=== PATIENT | female | born 1985 | race Caucasian/White ===

== ENCOUNTER 2021-01-10 13:17 | Emergency (ER) | payer BC ==
--- NOTE | 2021-01-10 13:26 | EDM.PDOC ---
ED HPI GENERAL MEDICAL PROBLEM - General Chief Complaint: General Stated Complaint: left arm pain Time Seen by Provider: 01/10/21 13:26 Source of Information: Reports: Patient - History of Present Illness INITIAL COMMENTS - FREE TEXT/NARRATIVE: Karen, 35-year-old female, presents with left forearm elbow and wrist pain with some numbness to the fingers. States she was school shopping for her son on Monday, carrying bags over her forearm and hand when she noticed a sudden sensation in the elbow that led to increasing numbness and limited extension at the elbow as well is unable to supinate her forearm palm. States it has become gradually more achy and now is tingling in the wrist and fingers. She denies any trauma, falls or incidents that day. Gives remote history of striking her "Funny bone" over a week ago, with no specific concerns. History of the humerus as well as forearm fractures as a child. Denies any other complications but stating at times pain radiates up towards to the shoulder but does not have any limitations of the shoulder girdle. Onset: Gradual Onset Date: 01/08/21 Duration: Day(s): Location: Reports: Upper Extremity, Left Quality: Reports: Ache, Pressure, Throbbing Severity: Severe Improves with: Reports: None Worsens with: Reports: Movement Context: Reports: Activity, Lifting Associated Symptoms: Reports: No Other Symptoms left arm Pain Score (Numeric/FACES): 8 - Related Data Allergies Allergy/AdvReac Type Severity Reaction Status Date / Time No Known Allergies Allergy Verified 01/10/21 13:22 Home Meds: Home Meds . 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: Endometrial Ablation, Endometriosis, : 1 Para: 1 Musculoskeletal History: Reports: Other (See Below) (fracture humerus and forearm, child) Neurological History: Reports: None Psychiatric History: Reports: None Endocrine/Metabolic History: Reports: None Oncologic (Cancer) History: Reports: None Dermatologic History: Reports: None - Past Surgical History HEENT Surgical History: Reports: Other (See Below) (wisdom teeth) Female Surgical History: Reports: Hysterectomy Social & Family History - Family History Family Medical History: No Pertinent Family History - Tobacco Use Tobacco Use Status *Q: Current Some Day Tobacco User Tobacco Use Within Last Twelve Months: Cigarettes Used Tobacco, but Quit: No Smoking Cessation Information Provided To Patient: No - Alcohol Use Alcohol Use History: Yes Alcohol Use in Last Twelve Months: Yes Alcohol Use Frequency: Socially ED ROS GENERAL - Review of Systems Review Of Systems: Comprehensive ROS is negative, except as noted in HPI. ED EXAM, GENERAL - Physical Exam Exam: See Below Free Text/Narrative:: Alert, oriented, in mild painful distress. HEENT is negative to discharge nor deformity. Neck is soft supple no lymphadenopathy. There is no tenderness to the shoulder girdle with mild tenderness at the distal humerus near the olecranon but not focal in nature. There is tenderness to the proximal forearm tenderness at at, with achiness tenderness distally in the forearm. Radial pulses present Motion of the wrist hand digits are intact but her forearm is in a neutral positioning, unable to supinate, with ability to further pronate. She can only extend her arm to roughly 110-120 degrees, stating pain increases as well as some numbness sensation to the wrist and hand increasing. No deformity with minimal swelling is noted in examination with tenderness in the antecubital fossa region and medially from there. No ecchymosis noted. ED GENERAL MEDICAL PROCEDURES - Splinting Left Upper Extremity Splint Site: distal arm/forearm Pre-procedure NV status: Normal Post-procedure NV status: Normal Splint Type: Custom Splint Material: Fiberglass Splint Design: Gutter Applied & Form Fitted By: Provider Provider Post-Splint Application NV Check: NV Status Normal, Good Position Complications: No Progress/Comments: Secondary of extreme discomfort, inability to extend and supinate IV was established with IV medications given an attempt to relax. 2 mg of Versed IV and 1 mg hydromorphone with good control of pain and allowing her to relax sufficiently. O2 sats maintained 97% with 2 L of nasal cannula and all vitals were monitored and remained stable. After allowing relaxation I attempted to supinate the forearm, and obtain extension. I was unable to bring the forearm into supination as it felt as if it was a catching/locking sensation at the radial head and would still not extend beyond the 110 degrees without increased pain. At this time any further manipulation was deferred and contact was made with [facility] in [place] speaking first with ELINA Esposito for Dr. Whyte in orthopedics and then Dr. Yao in the emergency department. Splinting was obtained and given information to call for orthopedic follow-up tomorrow. Was fully alert and oriented with minimal discomfort at the time splint was completed. She was discharged with individual coming to transport her she was advised she would not be able to drive for the remainder of the day. Course - Vital Signs Last Recorded V/S: Last Vital Signs Temp 97.2 F 01/10/21 13:59 Pulse 60 01/10/21 14:35 Resp 17 01/10/21 14:35 BP 142/80 H 01/10/21 14:35 Pulse Ox 98 01/10/21 14:35 - Orders/Labs/Meds Orders: Active Orders 24 hr Category Date Time Status Peripheral IV Care [RC] . DIRECTED Care 01/10/21 13:48 Ordered Sodium Chloride 0.9% [Saline Flush] Med 01/10/21 13:48 Ordered 10 ml FLUSH Q8HR PRN Peripheral IV Insertion Adult [OM.PC] Stat Oth 01/10/21 13:48 Ordered Medication Orders Sodium Chloride (Sodium Chloride 0.9% 10 Ml Syringe) 10 ml FLUSH Q8HR PRN PRN Reason: keep vein open Last Admin: 01/10/21 14:09 Dose: 10 ml Documented by: Admin: 01/10/21 14:03 Dose: 10 ml Documented by: BOWEN Meds: Medications Generic Name Dose Route Start Last Admin Trade Name Freq PRN Reason Stop Dose Admin Sodium Chloride 10 ml 01/10/21 13:48 01/10/21 14:09 Sodium Chloride 0.9% 10 Ml Syringe FLUSH 10 ml Q8HR PRN Administration keep vein open Discontinued Medications Generic Name Dose Route Start Last Admin Trade Name Freq PRN Reason Stop Dose Admin Hydromorphone HCl 1 mg 01/10/21 13:48 01/10/21 14:02 Hydromorphone 1 Mg/Ml Syringe IVPUSH 01/10/21 13:49 1 mg ONETIME ONE Administration Ketorolac Tromethamine 60 mg 01/10/21 13:33 01/10/21 13:38 Ketorolac 60 Mg/2 Ml Sdv IM 01/10/21 13:34 60 mg ONETIME ONE Administration Midazolam HCl 2 mg 01/10/21 13:48 01/10/21 14:02 Midazolam 1 Mg/Ml 2 Ml Sdv IVPUSH 01/10/21 13:49 2 mg ONETIME ONE Administration Departure - Departure Time of Disposition: 15:15 Disposition: Home, Self-Care 01 Condition: Good Clinical Impression: Fracture of lateral epicondyle of left humerus, Elbow pain, left - Discharge Information *PRESCRIPTION DRUG MONITORING PROGRAM REVIEWED*: Not Applicable *COPY OF PRESCRIPTION DRUG MONITORING REPORT IN PATIENT JESIKA: Not Applicable Instructions: Musculoskeletal Pain, Humerus Fracture With Rehab-SportsMed Referrals: Reymundo Whyte MD [Ordering Only Provider] - Forms: ED Department Discharge Additional Instructions: You have been placed in a splint. Keep in splint and sling until you are re-seen tomorrow or Monday is able to schedule with [facility] office. You may call [phone] to the switchboard to be connected with the orthopedic department. Avoid any use of the left upper extremity. You may take Tylenol and/or ibuprofen for the discomfort. Ice may help comfort as well as reduce any further swelling that is present although it is minimal at this time. You may use heat if that would help with your discomfort. X-rays are at [facility] at this time and have been looked at preliminary in discussion with providers today. Call at 8 AM tomorrow morning to establish follow-up appointment. [phone] Call or return to the hospital if concerns develop prior to your appointment. Sepsis Event Note (ED) - Focused Exam Vital Signs: Vital Signs Temp Pulse Resp BP Pulse Ox 01/10/21 14:35 60 17 142/80 H 98 01/10/21 14:30 70 20 144/87 H 96 01/10/21 14:25 66 19 141/95 H 97 01/10/21 14:20 75 21 H 133/85 98 01/10/21 14:15 69 20 152/89 H 95 01/10/21 14:11 79 16 148/94 H 97 01/10/21 13:59 97.2 F 80 18 107/71 97 01/10/21 13:23 97.4 F 104 H 16 147/94 H 96 - Problem List & Annotations (1) Elbow pain, left SNOMED Code(s): 51537229 Code(s): M25.522 - PAIN IN LEFT ELBOW Status: Acute Priority: High (2) Fracture of lateral epicondyle of left humerus SNOMED Code(s): 761875961 Code(s): S42.432A - DISP FX (AVULSION) OF LATERAL EPICONDYLE OF L HUMERUS, INIT Status: Acute Priority: High Qualifiers: Encounter type: initial encounter Fracture type: closed Fracture alignment: nondisplaced - Problem List Review Problem List Initiated/Reviewed/Updated: Yes - My Orders Last 24 Hours: My Active Orders 01/10/21 13:48 Peripheral IV Care [RC] . DIRECTED Sodium Chloride 0.9% [Saline Flush] 10 ml FLUSH Q8HR PRN Peripheral IV Insertion Adult [OM.PC] Stat - Assessment/Plan Last 24 Hours: My Active Orders 01/10/21 13:48 Peripheral IV Care [RC] . DIRECTED Sodium Chloride 0.9% [Saline Flush] 10 ml FLUSH Q8HR PRN Peripheral IV Insertion Adult [OM.PC] Stat Plan: You have been placed in a splint. Keep in splint and sling until you are re-seen tomorrow or Monday is able to schedule with [facility] office. You may call [phone] to the switchboard to be connected with the orthopedic department. Avoid any use of the left upper extremity. You may take Tylenol and/or ibuprofen for the discomfort. Ice may help comfort as well as reduce any further swelling that is present although it is minimal at this time. You may use heat if that would help with your discomfort. X-rays are at [facility] at this time and have been looked at preliminary in discussion with providers today. Call at 8 AM tomorrow morning to establish follow-up appointment. [phone] Call or return to the hospital if concerns develop prior to your appointment.
[2021-01-10] MEDS ORDERED: Ketorolac 60 MG/2 ML SDV IM ONE (13:33)
[2021-01-10] MEDS ORDERED: Midazolam 1 MG/ML 2 ML SDV IVPUSH ONE (13:48)
[2021-01-10] MEDS ORDERED: HYDROmorphone 1 MG/ML Syringe IVPUSH ONE (13:48)
[2021-01-10] MEDS: Sodium Chloride 0.9% 10 ML Syringe FLUSH PRN ×2 (14:03→14:09)
--- NOTE | 2021-01-10 14:18 | CR ---
[id number] RAD/RAD Elbow Left 2V EXAM: 2 VIEWS LEFT ELBOW. 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 SHOPPING, CARRYING BAGS ON ARM AND COMPARISON: None. DISCUSSION: Suspect left lateral epicondylar fracture with moderate left elbow joint effusion. No other fractures are identified. No dislocation. IMPRESSION: 1. As above. Dayron Kirby DO 01/10/21 1416 Thank you for allowing us to participate in the care of your patient.
== END 2021-01-10 15:30 | disposition home or self-care (01) ==
LOC: KA.ED 13:17
DX: S42.432A Displaced fracture (avulsion) of lateral epicondyle of left humerus, initial encounter for closed fracture (principal); Z72.0 Tobacco use; X58.XXXA Exposure to other specified factors, initial encounter
CPT/HCPCS: 29105; 29125; 73070-LT; 96372; 96374; 99283; 99283-25; J1170; J1885; J2250